=== PATIENT | male | born 1985 | race Caucasian/White ===

== ENCOUNTER 2016-08-01 09:56 | Emergency (ER) | payer OTHER ==
[~2016-08-01] VITALS: Ht 177.8 cm; Wt 63.5 kg
[~2016-08-01 09:56] MED LIST: AMOXICILLIN500 MG PO; ANTIVERT/2525 M1 PO; CIPROFLOXACIN500 MG PO; CLINDAMYCIN150 MG PO; Ciprofloxacin500 MG PO; FLOMAX0.4 MG PO; LIDEX 0.05% GEL60 GM PO; LIDEX0.05% T; MOTRIN800 MG PO; PEN-VEE K500 MG PO; PEN-VK500 MG PO; PREDNICOT20 MG PO; PREDNISONE10 MG PO; ULTRAM50 MG PO; VICODIN 5/500 505 MG PO; VICODIN 500 MG-1 TAB PO; VICODIN ES 7501 TAB PO; Zofran4 MG PO
[2016-08-01] MEDS ORDERED: TOBREX OPHTH S2.5 ML OPH (10:01)
== END 2016-08-01 10:11 | disposition home or self-care (01) ==
LOC: ED 09:56
DX: H10.33 Unspecified acute conjunctivitis, bilateral (principal); R03.0 Elevated blood-pressure reading, without diagnosis of hypertension; F17.200 Nicotine dependence, unspecified, uncomplicated; Z79.899 Other long term (current) drug therapy

== ENCOUNTER 2023-08-18 23:20 | Emergency (ER) | payer SELFPAY ==
[~2023-08-18] VITALS: Ht 177.8 cm; Wt 65.8 kg
[~2023-08-18 23:20] MED LIST changes: +TOBREX OPHTH S2.5 ML OPH
[2023-08-19] MEDS ORDERED: Ondansetron Hydrochloride 4 MG/2 ML VIAL IV ONE (01:45)
[2023-08-19] MEDS ORDERED: HYDROmorphONE Hydrochloride 1 MG/ML SYR IV ONE (01:45)
== END 2023-08-19 02:28 | disposition short-term general hospital (02) ==
LOC: ED 23:20
DX: S82.251A Displaced comminuted fracture of shaft of right tibia, initial encounter for closed fracture (principal); S82.831A Other fracture of upper and lower end of right fibula, initial encounter for closed fracture; Z87.442 Personal history of urinary calculi; X58.XXXA Exposure to other specified factors, initial encounter; Y93.39 Activity, other involving climbing, rappelling and jumping off; Y92.89 Other specified places as the place of occurrence of the external cause; Y99.8 Other external cause status

== ENCOUNTER 2024-03-08 17:22 | Emergency (ER) | payer MEDICAID ==
[~2024-03-08] VITALS: Ht 162.5 cm; Wt 63.5 kg
[2024-03-08] MEDS ORDERED: MELOXICAM15 MG PO (17:38)
[2024-03-08] MEDS ORDERED: AMOX-CLAV 875-1 EACH PO (17:38)
[2024-03-08] MEDS ORDERED: Amoxicillin/Clavulanate Pota 875 MG TAB PO ONE (17:40)
[2024-03-08] MEDS ORDERED: Acetaminophen/Oxycodone 5 MG/325 MG TABLET PO ONE (17:40)
== END 2024-03-08 17:40 | disposition home or self-care (01) ==
LOC: ED 17:22
DX: K04.7 Periapical abscess without sinus (principal); R22.0 Localized swelling, mass and lump, head; F17.290 Nicotine dependence, other tobacco product, uncomplicated; Z87.442 Personal history of urinary calculi